=== PATIENT | female | born 1970 | race Caucasian/White ===

== ENCOUNTER → 2021-06-22 | Outpatient (CLI) | payer BC ==
[~2021-06-22] MED LIST: AZO STANDARD95 MG PO; CRESTOR10 MG PO; HYDROCHLOROTHIA25 MG PO; IRON325 M1 PO; MOBIC15 MG PO; PENNSAID112 GM TOP; PROTONIX40 MG PO; REMERON30 MG PO; ULTRAM50 MG PO; VITAMIN D21250 MCG PO
[2021-06-22 12:38] LABS: HEMOGLOBIN 12.9 gm/dl (12.3-15.3); RED BLOOD COUNT 4.45 M/UL (4.00-5.10); WHITE BLOOD COUNT 8.9 K/UL (4.5-11.0)
[2021-06-22 12:43] LABS: BUN/CREATININE RATIO 20 (0-10)
== END ==
LOC: EDSTATUS 10:00 → OPSV2 10:00
PROVIDERS: Orthopaedic Surgery
DX: Z01.818 Encounter for other preprocedural examination (principal); M17.11 Unilateral primary osteoarthritis, right knee; R94.31 Abnormal electrocardiogram [ECG] [EKG]
CPT/HCPCS: 36415; 80048; 85027; 93005

== ENCOUNTER 2021-07-06 05:46 | Day surgery (SDC) | payer BC ==
[~2021-07-06] VITALS: Ht 160 cm; Wt 119.7 kg
[~2021-07-06 05:46] MED LIST changes: +LISINOPRIL-HCT1 EACH PO
[2021-07-07 02:40] LABS: HEMOGLOBIN 11.4 gm/dl (12.3-15.3); RED BLOOD COUNT 3.93 M/UL (4.00-5.10); WHITE BLOOD COUNT 13.3 K/UL (4.5-11.0)
[2021-07-07 06:47] LABS: BUN/CREATININE RATIO 23 (0-10)
[2021-07-07] MEDS ORDERED: PERCOCET 7.5-31 EACH PO (07:48)
[2021-07-07] MEDS ORDERED: ELIQUIS 2.5 MG2.5 MG GT (07:48)
== END 2021-07-07 11:22 | disposition home or self-care (01) ==
LOC: OR 05:46 → EDSTATUS 07:30 → OR 07:30 → M/S 12:39 → OR 07-07 11:22
PROVIDERS: Physician Assistant
DX: M17.11 Unilateral primary osteoarthritis, right knee (principal); I10 Essential (primary) hypertension; G47.33 Obstructive sleep apnea (adult) (pediatric); K21.9 Gastro-esophageal reflux disease without esophagitis; M19.90 Unspecified osteoarthritis, unspecified site; D64.9 Anemia, unspecified; Z88.5 Allergy status to narcotic agent; Z98.51 Tubal ligation status; E78.5 Hyperlipidemia, unspecified; E66.01 Morbid (severe) obesity due to excess calories; Z68.42 Body mass index [BMI] 45.0-49.9, adult; Z20.822 Contact with and (suspected) exposure to COVID-19
CPT/HCPCS: 36415; 73560; 76000; 80048; 83540; 83550; 83735; 85025; 97116; 97116-GP-CQ; 97161; 97166; 97535; C1776; J0171; J0690; J1100; J1170; J1885; J2001; J2250; J2405; J2704; J2795; J3010; J7120

== ENCOUNTER → 2021-11-23 | Outpatient (CLI) | payer BC ==
[~2021-11-23] MED LIST changes: +AMOX TR-K CLV1 EAC4 PO; +CRESTOR 10 MG T10 MG PO; -CRESTOR10 MG PO; +ELIQUIS 2.5 MG2.5 MG GT; +MELOXICAM15 MG PO; +MYRBETRIQ50 MG PO; +PERCOCET 7.5-31 EACH PO; +TOBRAMYCIN SULFATE; +VANCOMYCIN; +VORICONAZOLE; +ZYRTEC10 MG PO
[2021-11-23 09:50] LABS: HEMOGLOBIN 12.1 gm/dl (12.3-15.3); RED BLOOD COUNT 4.02 M/UL (4.00-5.10); WHITE BLOOD COUNT 9.2 K/UL (4.5-11.0)
[2021-11-23 10:09] LABS: BUN/CREATININE RATIO 21 (0-10)
== END ==
LOC: EDSTATUS 08:00 → OPSV2 08:00
PROVIDERS: Orthopaedic Surgery
DX: Z01.818 Encounter for other preprocedural examination (principal); M17.12 Unilateral primary osteoarthritis, left knee
CPT/HCPCS: 36415; 80048; 85025; 93005

== ENCOUNTER → 2021-12-06 | Outpatient (CLI) | payer BC ==
[~2021-12-06] MED LIST changes: -CRESTOR 10 MG T10 MG PO; +CRESTOR20 MG PO; +FISH OIL 1,0001 EAC8 PO; +VASCEPA1 GM PO
[2021-12-06 12:24] LABS: BUN/CREATININE RATIO 23 (0-10)
== END ==
LOC: LAB 10:59 → CCU 12-07 17:53 → LAB 12-07 17:53
PROVIDERS: Orthopaedic Surgery
DX: Z01.812 Encounter for preprocedural laboratory examination (principal)
CPT/HCPCS: 36415; 80048; 86850; 86900; 86901

== ENCOUNTER 2021-12-07 08:22 | Day surgery (SDC) | payer BC ==
[~2021-12-07] VITALS: Ht 160 cm; Wt 120.2 kg
[~2021-12-07 08:22] MED LIST changes: -FISH OIL 1,0001 EAC8 PO; -VASCEPA1 GM PO
[2021-12-07] MEDS ORDERED: FISH OIL 1,0001 EAC8 PO (08:49)
[2021-12-07] MEDS ORDERED: VASCEPA1 GM PO (21:04)
[2021-12-08] MEDS ORDERED: ELIQUIS 2.5 MG2.5 MG GT (07:33)
[2021-12-08] MEDS ORDERED: PERCOCET 7.5-31 EACH PO (07:48)
[2021-12-08 08:30] LABS: RED BLOOD COUNT 3.35 M/UL (4.00-5.10); WHITE BLOOD COUNT 13.7 K/UL (4.5-11.0)
[2021-12-08 11:11] LABS: BUN/CREATININE RATIO 21 (0-10)
== END 2021-12-08 15:56 | disposition home or self-care (01) ==
LOC: OR 08:22 → CCU 19:35 → OR 12-08 15:56
PROVIDERS: Nurse Practitioner Family; Orthopaedic Surgery
DX: M17.12 Unilateral primary osteoarthritis, left knee (principal); I95.9 Hypotension, unspecified; E78.5 Hyperlipidemia, unspecified; G47.33 Obstructive sleep apnea (adult) (pediatric); E66.9 Obesity, unspecified; D64.9 Anemia, unspecified; K21.9 Gastro-esophageal reflux disease without esophagitis; I10 Essential (primary) hypertension; Z88.5 Allergy status to narcotic agent
CPT/HCPCS: 36415; 73560; 76000; 80048; 85027; 97116; 97161; 97166; C1713; C1776; J0690; J1100; J1170; J1885; J2250; J2274; J2370; J2405; J2704; J2795; J3010